=== PATIENT | female | born 1975 | race Two or more races ===

== ENCOUNTER 2017-03-05 12:13 | Emergency (ER) | payer OTHER ==
[2017-03-05] MEDS ORDERED: MIDAZOLAM HCL 1 MG/ML 2ML VIAL ONE (12:50)
[2017-03-05 13:01] LABS: ABSOLUTE NEUTROPHIL COUNT 7.7 K/mm3 (1.8-7.7); BASO % 0.4 % (0.2-1.0); EOS # 0.1 (0.0-0.5); HEMOGLOBIN 12.9 gm/l (12.0-16.0); IMM NEUT% 0.3 % (0-1); LYMPH # 1.5 (1.0-4.8); LYMPH % 15.6 % (15-45); MEAN CELL VOLUME 89.4 fl (81.0-99.0); MEAN CORPUSCULAR HEMOGLOBIN 30.4 pg (27.0-31.0); MEAN CORPUSCULAR HGB CONC 33.9 g/dl (33.0-37.0); MEAN PLATELET VOLUME 9.9 fl (7.4-10.4); MONO # 0.4 (0.0-0.8); MONO % 4.5 % (4-12); NEUT % 78.2 % (43-75); PLATELET COUNT 340 K/mm3 (130-400); RED CELL DISTRIBUTION WIDTH 12.8 % (11.5-14.5)
[2017-03-05 13:11] LABS: ALB/GLOB RATIO 1.5 (>1.0); ALBUMIN 4.2 gm/dL (3.5-5.7); ALT/SGPT 15 U/L (7-52); BLOOD UREA NITROGEN 13 mg/dL (7-25); BUN/CREATININE RATIO 16 (6-20); GLOMERULAR FILTRATION RATE 79 mL/min (60-99); MAGNESIUM 1.8 mg/dL (1.9-2.7)
[2017-03-05 13:32] LABS: VALPROIC ACID < 10 ug/ml (50-100)
--- NOTE | 2017-03-05 14:07 | RAD ---
EXAMINATION : CHEST-AP BEDSIDE HISTORY: Altered mental status COMPARISONS: Prior exam dated 11/07/2016 FINDINGS: The cardiomediastinal silhouette is within normal limits. Lungs are clear. No gross effusion is identified. The osseous structures are within normal limits. IMPRESSION: Negative single view chest.
[2017-03-05] MEDS ORDERED: KETOROLAC TROMETHAMINE 30 MG/ML 1 ML VIAL ONE (14:20)
[2017-03-05 14:37] LABS: SPECIFIC GRAVITY 1.015 (1.001-1.030); URINE BILIRUBIN NEGATIVE (NEGATIVE); URINE BLOOD TRACE (NEGATIVE); URINE GLUCOSE (UA) NEGATIVE (NEGATIVE); URINE LEUKOCYTE ESTERASE NEGATIVE (NEGATIVE); URINE NITRITE NEGATIVE (NEGATIVE); URINE PROTEIN TRACE (NEGATIVE); URINE UROBILINOGEN NORMAL (0-1 mg/dl)
[2017-03-05 14:38] LABS: URINE APPEARANCE HAZY; URINE COLOR YELLOW
[2017-03-05 14:56] LABS: URINE RBC 0 /hpf
[2017-03-05 14:57] LABS: URINE BACTERIA 4+
== END 2017-03-05 15:00 | disposition home or self-care (01) ==
LOC: ED 12:13
DX: G40.909 Epilepsy, unspecified, not intractable, without status epilepticus (principal); R41.0 Disorientation, unspecified; E11.9 Type 2 diabetes mellitus without complications
CPT/HCPCS: 83605; 84703; 85025; 80053; 83735; 84484; 81001; 80164; 71010; 96375; 99284; 96374; 96361 ×2; 82962; 99283; J1885; J2250